=== PATIENT | female | born 1955 | race Caucasian/White ===

== ENCOUNTER 2018-09-13 14:43 | Emergency (ER) | payer SELFPAY ==
[~2018-09-13 14:43] MED LIST: ASPI325T30 PO; FER325 PO; FURO-110 PO; IBUP-1542 PO; WARF7.5T PO
== END 2018-09-13 18:31 | disposition left against medical advice (07) ==
LOC: E/R 14:43
DX: Z53.21 Procedure and treatment not carried out due to patient leaving prior to being seen by health care provider (principal)